=== PATIENT | female | born 1995 | race Caucasian/White ===

== ENCOUNTER 2019-03-23 13:52 | Emergency (ER) | payer OTHER ==
[2019-03-23 14:19] LABS: Pregnancy Test - Urine (BHCG) Negative (Negative); Pregu Control Background? CLEAR/WHITE (CLR/WHITE); Pregu Control Bar Appear? YES (CONTROL BAR)
[2019-03-23] MEDS ORDERED: Ondansetron PF 4 MG/2 ML Vial ONE (14:23)
[2019-03-23] MEDS ORDERED: Loperamide HCl 2 MG CAP ONE (14:23)
[2019-03-23 14:39] LABS: #Basophils 0.1 thou/uL (0.0-0.2); #Lymphocytes 2.6 thou/uL (1.20-3.40); #Monocytes 0.6 thou/uL (0.11-0.59); #Neutrophils 6.1 thou/uL (1.40-6.50); %Basophils 1.3 % (0.0-1.0); %Eosinophils 0.4 % (0.0-10.0); %Lymphocytes 27.5 % (21.0-51.0); %Monocytes 6.1 % (0.0-10.0); %Neutrophils 64.6 % (42.0-75.0); Hemoglobin 11.4 g/dL (12.0-16.0); Mean Corpuscular HGB CONC 33.2 g/dL (32.0-36.0); Mean Corpuscular Hemoglobin 30.6 pg (27.0-31.0); Mean Corpuscular Volume 92.2 fL (78.0-98.0); Mean Platelet Volume 5.7 fL (7.4-10.4); Platelet Count 350 thou/uL (130-400); RBC Distribution Width 11.8 % (11.5-14.5); Red Blood Cell (RBC) Count 3.74 mill/uL (4.20-5.40); White Blood Cell (WBC) Count 9.4 thou/uL (4.8-10.8)
[2019-03-23 14:45] LABS: Anion Gap 15 mmol/L (10-20); BUN (Urea Nitrogen) 8 mg/dL (7.0-18.7); Calc. Creatinine Clearance 0 mL/min (70-130); Calcium 9.2 mg/dL (7.8-10.44); Carbon Dioxide 23 mmol/L (22-29); Chloride 99 mmol/L (98-107); Estimated GFR-MDRD Greater than 90; Glucose 96 mg/dL (70-105); Potassium 3.9 mmol/L (3.5-5.1); Sodium 133 mmol/L (136-145)
== END 2019-03-23 15:12 | disposition home or self-care (01) ==
LOC: SCSER 13:52
DX: E86.0 Dehydration (principal); R11.2 Nausea with vomiting, unspecified; R19.7 Diarrhea, unspecified; F31.9 Bipolar disorder, unspecified; F41.9 Anxiety disorder, unspecified; F17.290 Nicotine dependence, other tobacco product, uncomplicated; Z79.899 Other long term (current) drug therapy
CPT/HCPCS: 80048; 81025; 85025; 96361; 96374; J2405